=== PATIENT | female | born 1935 | race Caucasian/White ===

== ENCOUNTER 2019-07-26 14:06 | Emergency (ER) | payer MEDICARE, BC ==
--- NOTE | 2019-07-26 15:36 | EDM.PDOCBH ---
ED HPI GENERAL MEDICAL PROBLEM - General Stated Complaint: SOB Time Seen by Provider: 07/26/19 14:10 Source of Information: Reports: [facility] Records - History of Present Illness INITIAL COMMENTS - FREE TEXT/NARRATIVE: Patient presented to the ED because hyperventilation, dyspnea and kind off hysteria after she found out that her children are not visiting her today. She was shaking the door so hard and almost fell to the floor. shelter staff were able to cath her and lay her on the floor before falling. - Related Data Allergies Allergy/AdvReac Type Severity Reaction Status Date / Time Unable to Assess Allergy Unverified 07/26/19 19:18 Home Meds: Home Meds . [Unable to Verify Home Med List] 07/26/19 [History] ED ROS GENERAL - Review of Systems Review Of Systems: See Below Constitutional: Reports: No Symptoms HEENT: Reports: No Symptoms Respiratory: Reports: Shortness of Breath Cardiovascular: Reports: No Symptoms Endocrine: Reports: No Symptoms GI/Abdominal: Reports: No Symptoms Skin: Reports: No Symptoms Psychiatric: Reports: Anxiety, Mood Lability ED EXAM, BEHAVIORAL HEALTH - Physical Exam Exam: See Below Exam Limited By: No Limitations General Appearance: Other (unresponsive and doesn't respond to questions. She will just open her eyes.) Ears: Normal External Exam, Normal [place] Nose: Normal Inspection Throat/Mouth: Normal Inspection, Normal Lips, Normal Teeth, Normal Gums Head: Atraumatic, Normocephalic Neck: Normal Inspection Respiratory/Chest: No Respiratory Distress, Lungs Clear, Normal Breath Sounds, No Accessory Muscle Use, Chest Non-Tender Back Exam: Normal Inspection Extremities: Normal Inspection, Normal Range of Motion, Non-Tender Neurological: Alert, Normal Mood/Affect, CN II-XII Intact, Normal Cognition, Normal Reflexes, No Motor/Sensory Deficits Psychiatric: Restless, Uncooperative, Other (unresponsive) Skin Exam: Warm COURSE, BEHAVIORAL HEALTH COMP - Course Vital Signs: Last Vital Signs Temp 36.2 C 07/26/19 14:06 Pulse 80 07/26/19 16:00 Resp 18 07/26/19 16:00 BP 155/72 H 07/26/19 16:00 Pulse Ox 99 07/26/19 16:00 labs reviewed and are stable Patient is vitally stable throughout her stay in the ED When patient's daughter arrived she started talking and was back to her baseline. Orders, Labs, Meds: Laboratory Tests 07/26/19 07/26/19 07/26/19 Range/Units 14:25 14:25 14:25 WBC 5.4 (4.5-12.0) X10-3/uL RBC 4.17 (3.23-5.20) x10(6)uL Hgb 12.8 (11.5-15.5) g/dL Hct 39.0 (30.0-51.3) % MCV 93.6 (80-96) fL MCH 30.6 (27.7-33.6) pg MCHC 32.7 (32.2-35.4) g/dL RDW 12.9 (11.5-15.5) % Plt Count 389 H (125-369) X10(3)uL MPV 7.4 (7.4-10.4) fL Neut % (Auto) 57.3 (46-82) % Lymph % (Auto) 31.3 (13-37) % [place] % (Auto) 7.9 (4-12) % Eos % (Auto) 3 (1.0-5.0) % Baso % (Auto) 1 (0-2) % Neut # (Auto) 3.0 (1.6-8.3) # Lymph # (Auto) 1.7 (0.6-5.0) # [place] # (Auto) 0.4 (0.0-1.3) # Eos # (Auto) 0.2 (0.0-0.8) # Baso # (Auto) 0.0 (0.0-0.2) # Sodium 143 (135-145) mmol/L Potassium 3.9 (3.5-5.3) mmol/L Chloride 106 (100-110) mmol/L Carbon Dioxide 27 (21-32) mmol/L BUN 14 (7-18) mg/dL Creatinine 0.9 (0.55-1.02) mg/dL Est Cr Clr Drug Dosing TNP Estimated GFR (MDRD) 60 (>60) BUN/Creatinine Ratio 15.6 (9-20) Glucose 95 (80-116) mg/dL Calcium 9.1 (8.6-10.2) mg/dL Troponin I < 0.017 L (<0.017-0.056) ng/mL Departure - Departure Time of Disposition: 15:35 Disposition: Home, Self-Care 01 Condition: Good Clinical Impression: Conversion disorder - Discharge Information Instructions: Conversion Disorder Referrals: Brendon Rosen MD [Primary Care Provider] - Forms: ED Department Discharge Additional Instructions: please read discharge instructions on conversion disorder if he becomes agitated again, give ativan 1 mg IM x1 follow up if symptoms persist
== END 2019-07-26 16:20 | disposition home or self-care (01) ==
LOC: FB.ED 14:06
DX: F44.5 Conversion disorder with seizures or convulsions (principal)
CPT/HCPCS: 36415; 80048; 84484; 85025; 93005; 99283; 99284

== ENCOUNTER 2020-02-28 13:54 | Emergency (ER) | payer MEDICARE, MEDICAID ==
[2020-02-28] MEDS ORDERED: Sodium Chloride 0.9% 10 ML Syringe FLUSH PRN (14:20)
--- NOTE | 2020-02-28 14:33 | EDM.PDOC ---
ED HPI GENERAL MEDICAL PROBLEM - General Chief Complaint: Lower Extremity Injury/Pain Stated Complaint: FELL Time Seen by Provider: 02/28/20 14:28 Source of Information: Reports: Patient History Limitations: Reports: No Limitations - History of Present Illness INITIAL COMMENTS - FREE TEXT/NARRATIVE: Patient resides at [facility]. She lost her balance and fell today while out side walking with spiritual services. There was no loss of consciousness or seizure activity. Patient believes she did strike her head, but denies headache or neck pain. She complains of right hip pain. Onset: Today Duration: Hour(s): (1) Location: Reports: Lower Extremity, Right Severity: Moderate right side hip Pain Score (Numeric/FACES): 6 - Related Data Allergies Allergy/AdvReac Type Severity Reaction Status Date / Time Unable to Assess Allergy Unverified 07/26/19 19:18 Home Meds: Home Meds . [Unable to Verify Home Med List] 07/26/19 [History] Past Medical History Cardiovascular History: Reports: Afib, CAD, High Cholesterol, Hypertension Neurological History: Reports: Alzheimers Disease, Seizure, TIA Endocrine/Metabolic History: Reports: Hypothyroidism Social & Family History - Family History Family Medical History: Noncontributory - Caffeine Use Caffeine Use: Reports: Coffee Review of Systems - Review of Systems Review Of Systems: Comprehensive ROS is negative, except as noted in HPI. ED EXAM, GENERAL - Physical Exam Exam: See Below Exam Limited By: No Limitations General Appearance: Alert, WD/WN, No Apparent Distress Eye Exam: Bilateral Eye: EOMI, PERRL Throat/Mouth: No Airway Compromise Head: Atraumatic, Normocephalic Neck: Normal Inspection, Non-Tender, Full Range of Motion Respiratory/Chest: No Respiratory Distress, Lungs Clear, Normal Breath Sounds Cardiovascular: Regular Rate, Rhythm, No Murmur Peripheral Pulses: 2+: Femoral (L), Femoral (R), Dorsalis Pedis (L), Dorsalis Pedis (R) GI/Abdominal: Normal Bowel Sounds, Soft, Non-Tender, No Distention Back Exam: Full Range of Motion Extremities: Other (Bilateral hip and mid thigh tenderness. No deformity, shortening or rotation.) Neurological: Alert Skin Exam: Warm, Dry, Intact Course - Vital Signs Last Recorded V/S: Last Vital Signs Temp 36.8 C 02/28/20 13:54 Pulse 66 02/28/20 13:54 Resp 18 02/28/20 13:54 BP 159/72 H 02/28/20 13:54 Pulse Ox 97 02/28/20 13:54 - Orders/Labs/Meds Orders: Active Orders 24 hr Category Date Time Status EKG Documentation Completion [RC] ASDIRECTED Care 02/28/20 14:34 Active Cervical Spine wo Cont [CT] Stat Exams 02/28/20 14:21 Taken Femur Min 2V Bi [CR] Stat Exams 02/28/20 14:23 Taken Head wo Cont [CT] Stat Exams 02/28/20 14:21 Taken Pelvis wo Cont [CT] Stat Exams 02/28/20 14:22 Taken Sodium Chloride 0.9% [Saline Flush] Med 02/28/20 14:20 Active 10 ml FLUSH ASDIRECTED PRN Saline Lock Insert [OM.PC] Routine Oth 02/28/20 14:20 Ordered EKG 12 Lead [EK] Stat Ther 02/28/20 14:34 Ordered Medication Orders Sodium Chloride (Saline Flush) 10 ml FLUSH ASDIRECTED PRN PRN Reason: Keep Vein Open Labs: Laboratory Tests 02/28/20 02/28/20 Range/Units 14:38 14:38 WBC 4.8 (4.5-12.0) X10-3/uL RBC 3.67 (3.23-5.20) x10(6)uL Hgb 11.4 L (11.5-15.5) g/dL Hct 34.0 (30.0-51.3) % MCV 92.6 (80-96) fL MCH 31.1 (27.7-33.6) pg MCHC 33.6 (32.2-35.4) g/dL RDW 11.9 (11.5-15.5) % Plt Count 324 (125-369) X10(3)uL MPV 6.7 L (7.4-10.4) fL Neut % (Auto) 60.2 (46-82) % Lymph % (Auto) 27.4 (13-37) % [place] % (Auto) 7.7 (4-12) % Eos % (Auto) 4 (1.0-5.0) % Baso % (Auto) 1 (0-2) % Neut # (Auto) 2.8 (1.6-8.3) # Lymph # (Auto) 1.3 (0.6-5.0) # [place] # (Auto) 0.4 (0.0-1.3) # Eos # (Auto) 0.2 (0.0-0.8) # Baso # (Auto) 0.0 (0.0-0.2) # Sodium 141 (135-145) mmol/L Potassium 4.1 (3.5-5.3) mmol/L Chloride 106 (100-110) mmol/L Carbon Dioxide 28 (21-32) mmol/L BUN 16 (7-18) mg/dL Creatinine 0.9 (0.55-1.02) mg/dL Est Cr Clr Drug Dosing 37.80 mL/min Estimated GFR (MDRD) 60 (>60) BUN/Creatinine Ratio 17.8 (9-20) Glucose 95 (80-116) mg/dL Calcium 8.9 (8.6-10.2) mg/dL Meds: Medications Generic Name Dose Route Start Last Admin Trade Name Freq PRN Reason Stop Dose Admin Sodium Chloride 10 ml 02/28/20 14:20 Saline Flush FLUSH ASDIRECTED PRN Keep Vein Open - Radiology Interpretation Free Text/Narrative:: Head CT: No acute process. (per Dr. Grovre) CT C-spine w/o contrast: No fracture or subluxation. (per Dr. Grover) CT Pelvis w/o contrast: No fracture. (per Dr. Grover) Bilateral femur xrays: No fractures. (per Dr. Grover) Departure - Departure Time of Disposition: 15:34 Disposition: DC/Tfer to SNF 03 Condition: Good Clinical Impression: Minor head injury Qualifiers: Encounter type: initial encounter Qualified Code(s): S09.90XA - Unspecified injury of head, initial encounter Contusion of hip, right Qualifiers: Encounter type: initial encounter Qualified Code(s): S70.01XA - Contusion of right hip, initial encounter - Discharge Information *PRESCRIPTION DRUG MONITORING PROGRAM REVIEWED*: No *COPY OF PRESCRIPTION DRUG MONITORING REPORT IN PATIENT YVES: Not Applicable Instructions: Contusion, [id number], Head Injury, Adult, [id number] Referrals: Brendon Rosen MD [Primary Care Provider] - Forms: ED Department Discharge Additional Instructions: Give Tylenol as needed to control pain. Return to the ER as needed. Sepsis Event Note (ED) - Evaluation Sepsis Screening Result: No Definite Risk - Focused Exam Vital Signs: Vital Signs Temp Pulse Resp BP Pulse Ox 02/28/20 13:54 36.8 C 66 18 159/72 H 97 - My Orders Last 24 Hours: My Active Orders 02/28/20 14:20 Sodium Chloride 0.9% [Saline Flush] 10 ml FLUSH ASDIRECTED PRN Saline Lock Insert [OM.PC] Routine 02/28/20 14:21 Cervical Spine wo Cont [CT] Stat Head wo Cont [CT] Stat 02/28/20 14:22 Pelvis wo Cont [CT] Stat 02/28/20 14:23 Femur Min 2V Bi [CR] Stat 02/28/20 14:34 EKG Documentation Completion [RC] ASDIRECTED EKG 12 Lead [EK] Stat - Assessment/Plan Last 24 Hours: My Active Orders 02/28/20 14:20 Sodium Chloride 0.9% [Saline Flush] 10 ml FLUSH ASDIRECTED PRN Saline Lock Insert [OM.PC] Routine 02/28/20 14:21 Cervical Spine wo Cont [CT] Stat Head wo Cont [CT] Stat 02/28/20 14:22 Pelvis wo Cont [CT] Stat 02/28/20 14:23 Femur Min 2V Bi [CR] Stat 02/28/20 14:34 EKG Documentation Completion [RC] ASDIRECTED EKG 12 Lead [EK] Stat
--- NOTE | 2020-02-28 17:11 | CT ---
INDICATION: Fall hitting head. CT HEAD WITHOUT CONTRAST: Spiral 3.75 mm axial sections were obtained through the brain without contrast 02/28/20 - no comparison. Calcification is noted in the vertebral arteries and the internal carotid arteries. Paranasal sinuses and mastoid air cells were well aerated. No cranial fracture site was identified. No shift of midline structures was seen. Ventricles and sulci are prominent compatible with generalized atrophy. Areas of decreased density are noted in the white matter compatible with microvascular disease of mild to moderate degree. No evidence of a bleeding site or hematoma was identified - no acute intracranial abnormality was suggested. Orbits appear to be intact. IMPRESSION: 1. No definite acute intracranial abnormality. 2. Cerebrovascular disease with arterial calcifications, white matter changes compatible with mild to moderate microvascular disease and atrophy both cortical and central, more prominent centrally. Total exam DLP was 1296.53 mGy-cm. Report was called to Dr. Obregon at 1508 hours. [facility]
--- NOTE | 2020-02-28 17:17 | CT ---
INDICATION: Fall. CT CERVICAL SPINE: Spiral 2.5 mm axial sections were obtained through the cervical spine with sagittal and coronal reconstructions 02/28/20 - no comparisons. Total exam DLP was 361.58 mGy-cm. Vertebral body and disc heights were fairly well maintained. Moderate degenerative hypertrophic changes with narrowing, sclerosis, and hypertrophic changes noted at the odontoatlantian joint. The atlas and axis were intact as the odontoid is intact. An acute fracture or dislocation was not suggested. Bone density appeared to be fairly normal. Prevertebral spaces appeared to be normal. Neural foramina were widely patent. IMPRESSION: 1. No acute fracture or dislocation. 2. Degenerative changes odontoatlantian joint. Report was called to Dr. Obregon at 1508 hours. [facility]
--- NOTE | 2020-02-28 17:22 | CT ---
INDICATION: Trauma - fall, pain bilateral hips, right more than left. CT PELVIS WITHOUT CONTRAST: Spiral 1.25 mm axial sections were obtained through the pelvis with sagittal and coronal reconstructions 02/28/20 - no comparisons. Total exam DLP was 636.74 mGy-cm. Calcifications are noted in the abdominal aorta, iliac and minimally in the femoral arteries. The uterus is absent. Urinary bladder was unremarkable. There are some phleboliths in the pelvis. Sigmoid diverticulosis is noted without definite evidence of diverticulitis. No evidence of hematoma was seen. Mild degenerative changes are noted at the sacroiliac joint on the right with minimal degenerative changes on the left at the sacroiliac joint. Minimal degenerative changes are noted at the right hip joint with hypertrophic lipping of very minimal degree. A fracture or dislocation was not identified. Incidentally noted is degenerative disc disease at L5-S1. IMPRESSION: No acute fracture or dislocation. Report was called to Dr. Obregon at 1508 hours. [facility]
--- NOTE | 2020-02-28 17:25 | CR ---
INDICATION: Fall. BILATERAL FEMURS: Eight images of the femurs bilaterally were obtained in frontal and lateral projections and revealed no evidence of an acute fracture, dislocation or other acute bone or joint abnormality. Minor degenerative change is suggested at the right hip joint and right knee joint. Minimal spur is noted off the left patella craniolaterally. Report was called to Dr. Obregon at 1508 hours. [facility]
== END 2020-02-28 16:10 ==
LOC: FB.ED 13:54
DX: S70.01XA Contusion of right hip, initial encounter (principal); S09.90XA Unspecified injury of head, initial encounter; W19.XXXA Unspecified fall, initial encounter; I48.91 Unspecified atrial fibrillation; I25.10 Atherosclerotic heart disease of native coronary artery without angina pectoris; E78.00 Pure hypercholesterolemia, unspecified; I10 Essential (primary) hypertension; G30.9 Alzheimer's disease, unspecified; F02.80 Dementia in other diseases classified elsewhere, unspecified severity, without behavioral disturbance, psychotic disturbance, mood disturbance, and anxiety; E03.9 Hypothyroidism, unspecified; Z86.73 Personal history of transient ischemic attack (TIA), and cerebral infarction without residual deficits; G40.909 Epilepsy, unspecified, not intractable, without status epilepticus
CPT/HCPCS: 36415; 70450; 72125; 72192; 73552-50; 80048; 85025; 93010; 99283; 99284-25

== ENCOUNTER 2020-04-12 18:57 | Emergency (ER) | payer MEDICARE, MEDICAID ==
--- NOTE | 2020-04-12 19:34 | EDM.PDOC ---
ED HPI GENERAL MEDICAL PROBLEM - General Chief Complaint: Neuro Symptoms/Deficits Stated Complaint: FALL Time Seen by Provider: 04/12/20 19:00 Source of Information: Reports: Patient History Limitations: Reports: No Limitations - History of Present Illness INITIAL COMMENTS - FREE TEXT/NARRATIVE: Patient presented to the ED from the [facility] because of a fall. It was an unwitnessed fall, patient was found on the floor with facial bleeding. There was no LOC. She c/o low back pain, left hip and right knee pain. back, tailbone, L hip, R knee Pain Score (Numeric/FACES): 4 - Related Data Allergies Allergy/AdvReac Type Severity Reaction Status Date / Time erythromycin base Allergy Unknown Other Verified 04/12/20 19:23 [From Erythrocin] Home Meds: Home Meds . [Unable to Verify Home Med List] 07/26/19 [History] Past Medical History Cardiovascular History: Reports: Afib, CAD, High Cholesterol, Hypertension Neurological History: Reports: Alzheimers Disease, Seizure, TIA Endocrine/Metabolic History: Reports: Hypothyroidism Social & Family History - Family History Family Medical History: Noncontributory - Caffeine Use Caffeine Use: Reports: Coffee ED ROS GENERAL - Review of Systems Review Of Systems: See Below Constitutional: Reports: No Symptoms HEENT: Reports: No Symptoms Respiratory: Reports: No Symptoms Cardiovascular: Reports: No Symptoms Endocrine: Reports: No Symptoms GI/Abdominal: Reports: No Symptoms : Reports: No Symptoms Musculoskeletal: Reports: No Symptoms Skin: Reports: No Symptoms Neurological: Reports: No Symptoms Psychiatric: Reports: No Symptoms Hematologic/Lymphatic: Reports: No Symptoms Immunologic: Reports: No Symptoms ED EXAM, GENERAL - Physical Exam Exam: See Below Exam Limited By: No Limitations Eye Exam: Bilateral Eye: PERRL Ears: Normal External Exam Nose: Normal Inspection, Normal Mucosa Throat/Mouth: Normal Inspection, Normal Lips, Normal Teeth Head: Atraumatic, Normocephalic Neck: Normal Inspection, Supple, Non-Tender, Full Range of Motion Respiratory/Chest: No Respiratory Distress, Lungs Clear, Normal Breath Sounds Cardiovascular: Normal Peripheral Pulses, Regular Rate, Rhythm, No Edema, No Gallop GI/Abdominal: Normal Bowel Sounds Back Exam: Normal Inspection, Full Range of Motion Extremities: Normal Inspection, Normal Range of Motion, Other (tenderness over the left hip,rt knee) Neurological: Alert, Other (demented) Psychiatric: Normal Affect Course - Vital Signs Last Recorded V/S: Last Vital Signs Temp 36.7 C 04/12/20 19:00 Pulse 56 L 04/12/20 19:00 Resp 16 04/12/20 19:00 BP 146/50 H 04/12/20 19:00 Pulse Ox 95 04/12/20 19:00 Labs and radiology result was discussed with patient and her daughter Juana - Orders/Labs/Meds Orders: Active Orders 24 hr Category Date Time Status EKG Documentation Completion [RC] ASDIRECTED Care 04/12/20 19:10 Active Cervical Spine wo Cont [CT] Stat Exams 04/12/20 19:11 Taken Head wo Cont [CT] Stat Exams 04/12/20 19:11 Taken Knee 1V or 2V Rt [CR] Stat Exams 04/12/20 19:19 Taken Lumbar Spine wo Cont [CT] Stat Exams 04/12/20 19:19 Taken Max Facial Sinus wo Cont [CT] Stat Exams 04/12/20 19:13 Taken Pelvis wo Cont [CT] Stat Exams 04/12/20 19:19 Taken EKG 12 Lead [EK] Routine Ther 04/12/20 19:10 Ordered Labs: Laboratory Tests 04/12/20 04/12/20 04/12/20 Range/Units 19:22 19:22 19:22 WBC 4.6 (4.5-12.0) X10-3/uL RBC 3.72 (3.23-5.20) x10(6)uL Hgb 11.5 (11.5-15.5) g/dL Hct 34.6 (30.0-51.3) % MCV 92.9 (80-96) fL MCH 30.9 (27.7-33.6) pg MCHC 33.2 (32.2-35.4) g/dL RDW 12.1 (11.5-15.5) % Plt Count 299 (125-369) X10(3)uL MPV 6.8 L (7.4-10.4) fL Neut % (Auto) 56.6 (46-82) % Lymph % (Auto) 32.5 (13-37) % [place] % (Auto) 7.7 (4-12) % Eos % (Auto) 3 (1.0-5.0) % Baso % (Auto) 1 (0-2) % Neut # (Auto) 2.6 (1.6-8.3) # Lymph # (Auto) 1.5 (0.6-5.0) # [place] # (Auto) 0.4 (0.0-1.3) # Eos # (Auto) 0.1 (0.0-0.8) # Baso # (Auto) 0.0 (0.0-0.2) # PT 10.4 (9.0-11.1) sec INR 0.96 L (1.00-1.24) APTT 22.4 L (24.4-33.2) SECONDS Sodium 140 (135-145) mmol/L Potassium 3.9 (3.5-5.3) mmol/L Chloride 104 (100-110) mmol/L Carbon Dioxide 27 (21-32) mmol/L BUN 17 (7-18) mg/dL Creatinine 1.0 (0.55-1.02) mg/dL Est Cr Clr Drug Dosing TNP Estimated GFR (MDRD) 53 L (>60) BUN/Creatinine Ratio 17.0 (9-20) Glucose 93 (80-116) mg/dL Calcium 8.6 (8.6-10.2) mg/dL Total Bilirubin 0.4 (0.1-1.3) mg/dL AST 26 H D (5-25) IU/L ALT 25 (12-36) U/L Alkaline Phosphatase 93 (56-112) IU/L Troponin I (4.0-60.3) pg/mL Total Protein 6.8 (6.0-8.0) g/dL Albumin 3.8 (3.2-4.6) g/dL Globulin 3.0 g/dL Albumin/Globulin Ratio 1.3 08//20 Range/Units 19:22 WBC (4.5-12.0) X10-3/uL RBC (3.23-5.20) x10(6)uL Hgb (11.5-15.5) g/dL Hct (30.0-51.3) % MCV (80-96) fL MCH (27.7-33.6) pg MCHC (32.2-35.4) g/dL RDW (11.5-15.5) % Plt Count (125-369) X10(3)uL MPV (7.4-10.4) fL Neut % (Auto) (46-82) % Lymph % (Auto) (13-37) % [place] % (Auto) (4-12) % Eos % (Auto) (1.0-5.0) % Baso % (Auto) (0-2) % Neut # (Auto) (1.6-8.3) # Lymph # (Auto) (0.6-5.0) # [place] # (Auto) (0.0-1.3) # Eos # (Auto) (0.0-0.8) # Baso # (Auto) (0.0-0.2) # PT (9.0-11.1) sec INR (1.00-1.24) APTT (24.4-33.2) SECONDS Sodium (135-145) mmol/L Potassium (3.5-5.3) mmol/L Chloride (100-110) mmol/L Carbon Dioxide (21-32) mmol/L BUN (7-18) mg/dL Creatinine (0.55-1.02) mg/dL Est Cr Clr Drug Dosing Estimated GFR (MDRD) (>60) BUN/Creatinine Ratio (9-20) Glucose (80-116) mg/dL Calcium (8.6-10.2) mg/dL Total Bilirubin (0.1-1.3) mg/dL AST (5-25) IU/L ALT (12-36) U/L Alkaline Phosphatase (56-112) IU/L Troponin I 11.4 (4.0-60.3) pg/mL Total Protein (6.0-8.0) g/dL Albumin (3.2-4.6) g/dL Globulin g/dL Albumin/Globulin Ratio Departure - Departure Time of Disposition: 21:00 Disposition: DC/Tfer to SNF 03 Condition: Good Clinical Impression: Closed head injury, Muscle strain, Contusion - Discharge Information Referrals: Brendon Rosen MD [Primary Care Provider] - Forms: ED Department Discharge Additional Instructions: Please read discharge instructions on closed head injury, Muscle strain, Contusion Take tylenol 1000 mg every 8 ours as needed for pain Do not take your aspirin for 3 days Sepsis Event Note (ED) - Evaluation Sepsis Screening Result: No Definite Risk - Focused Exam Vital Signs: Vital Signs Temp Pulse Resp BP Pulse Ox 04/12/20 19:00 36.7 C 56 L 16 146/50 H 95 - My Orders Last 24 Hours: My Active Orders 04/12/20 19:10 EKG Documentation Completion [RC] ASDIRECTED EKG 12 Lead [EK] Routine 04/12/20 19:11 Cervical Spine wo Cont [CT] Stat Head wo Cont [CT] Stat 04/12/20 19:13 Max Facial Sinus wo Cont [CT] Stat 04/12/20 19:19 Knee 1V or 2V Rt [CR] Stat Lumbar Spine wo Cont [CT] Stat Pelvis wo Cont [CT] Stat - Assessment/Plan Last 24 Hours: My Active Orders 04/12/20 19:10 EKG Documentation Completion [RC] ASDIRECTED EKG 12 Lead [EK] Routine 04/12/20 19:11 Cervical Spine wo Cont [CT] Stat Head wo Cont [CT] Stat 04/12/20 19:13 Max Facial Sinus wo Cont [CT] Stat 04/12/20 19:19 Knee 1V or 2V Rt [CR] Stat Lumbar Spine wo Cont [CT] Stat Pelvis wo Cont [CT] Stat
== END 2020-04-12 21:40 ==
LOC: FB.ED 18:57
DX: S09.90XA Unspecified injury of head, initial encounter (principal); S76.012A Strain of muscle, fascia and tendon of left hip, initial encounter; S86.911A Strain of unspecified muscle(s) and tendon(s) at lower leg level, right leg, initial encounter; S39.012A Strain of muscle, fascia and tendon of lower back, initial encounter; I25.10 Atherosclerotic heart disease of native coronary artery without angina pectoris; I10 Essential (primary) hypertension; G30.9 Alzheimer's disease, unspecified; F02.80 Dementia in other diseases classified elsewhere, unspecified severity, without behavioral disturbance, psychotic disturbance, mood disturbance, and anxiety; I48.91 Unspecified atrial fibrillation; Z86.73 Personal history of transient ischemic attack (TIA), and cerebral infarction without residual deficits; Z88.1 Allergy status to other antibiotic agents; W19.XXXA Unspecified fall, initial encounter
CPT/HCPCS: 36415; 70450; 70486; 72125; 72131; 72192; 73560-RT; 80053; 84484; 85025; 85610; 85730; 93005; 99284-25

== ENCOUNTER 2020-05-05 15:08 | Emergency (ER) | payer MEDICARE, MEDICAID ==
--- NOTE | 2020-05-05 16:47 | EDM.PDOC ---
ED HPI GENERAL MEDICAL PROBLEM - General Stated Complaint: fall Time Seen by Provider: 05/05/20 15:15 Source of Information: Reports: Patient History Limitations: Reports: No Limitations - History of Present Illness INITIAL COMMENTS - FREE TEXT/NARRATIVE: Patient presented to the ED because ofa fall. Patient tripped and fell and landed on he butock and lower back. She sustained a head laceration over the right frontal area,c/o rt hip pain and low back pain. There was no LOC after the fall. - Related Data Allergies Allergy/AdvReac Type Severity Reaction Status Date / Time erythromycin base Allergy Unknown Other Verified 04/12/20 19:23 [From Erythrocin] codeine Allergy Other Verified 04/12/20 22:31 morphine Allergy Other Verified 04/12/20 22:31 Home Meds: Home Meds . [Unable to Verify Home Med List] 07/26/19 [History] Past Medical History Other HEENT History: dry eye syndrome, age related cataract, preglaucoma Cardiovascular History: Reports: Afib, CAD, High Cholesterol, Hypertension Other Cardiovascular History: Angina Pectoris, unspecified bradycardia Other Musculoskeletal History: has Alzheimer's Neurological History: Reports: Alzheimers Disease, Seizure, TIA Other Neuro History: Vascular dementia wihtout behavioral disturbance, Psychotic disorder with delusions due to known physiological condition. 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 Endocrine/Metabolic History: Reports: Hypothyroidism Oncologic (Cancer) History: Reports: Other (See Below) Other Oncologic History: malignant neoplasm of the skin. Dermatologic History: Reports: Other (See Below) Other Dermatologic History: malignant neoplasm of the skin. - Past Surgical History Cardiovascular Surgical History: Reports: None Social & Family History - Family History Family Medical History: Noncontributory - Caffeine Use Caffeine Use: Reports: Coffee Caffeine Use Comment: unable to get this information as of this time. ED ROS GENERAL - Review of Systems Review Of Systems: See Below Constitutional: Reports: No Symptoms HEENT: Reports: No Symptoms Respiratory: Reports: No Symptoms Cardiovascular: Reports: No Symptoms Endocrine: Reports: No Symptoms GI/Abdominal: Reports: No Symptoms : Reports: No Symptoms Musculoskeletal: Reports: Arm Pain, Joint Pain Skin: Reports: No Symptoms Neurological: Reports: No Symptoms Psychiatric: Reports: No Symptoms Hematologic/Lymphatic: Reports: No Symptoms ED EXAM, GENERAL - Physical Exam Exam: See Below Exam Limited By: No Limitations General Appearance: Other (demented) Ears: Normal External Exam, Normal Canal Nose: Normal Inspection, Normal Mucosa, No Blood Throat/Mouth: Normal Inspection, Normal Lips, Normal Teeth, Normal Gums Head: Atraumatic, Normocephalic Neck: Normal Inspection, Supple, Non-Tender, Full Range of Motion Respiratory/Chest: No Respiratory Distress, Lungs Clear, Normal Breath Sounds Cardiovascular: Normal Peripheral Pulses, Regular Rate, Rhythm, No Edema, No Gallop, No JVD, No Murmur GI/Abdominal: Normal Bowel Sounds, Soft, Non-Tender, No Organomegaly Back Exam: Normal Inspection, Full Range of Motion Extremities: Normal Inspection, Normal Range of Motion, Other (tenderness over the rt hip,lumbar spine) Neurological: Alert, Oriented, CN II-XII Intact, Normal Cognition Psychiatric: Normal Affect Skin Exam: Warm, Dry, Intact, Normal Color, No Rash, Other (3 cm lac rt frontal area) ED GENERAL MEDICAL PROCEDURES - Laceration/Wound Repair Right Forehead Appearance: Subcutaneous Distal NVT: Neuro & Vascular Intact Skin Prep: Chlorhexidine (Hibiciens) Closed with: Dermabond, Steri-Strips Course - Vital Signs Text/Narrative:: headt CT-neg thoracic, lumbar,rt hip xray-neg Last Recorded V/S: Last Vital Signs Temp 36.8 C 05/05/20 15:08 Pulse 67 05/05/20 15:08 Resp 16 05/05/20 15:08 BP 184/66 H 05/05/20 15:08 Pulse Ox 98 05/05/20 15:08 Departure - Departure Time of Disposition: 16:50 Disposition: DC/Tfer to SNF 03 Condition: Good Clinical Impression: Head injury, Laceration, Contusion, Musculoskeletal pain - Discharge Information Instructions: Head Injury, Adult, Laceration Care, Adult, Contusion, Tozi-by-Sugl Referrals: Brendon Rosen MD [Primary Care Provider] - Forms: ED Department Discharge Additional Instructions: Please read discharge instructions on head injury, contusion, muscle pain Take tylenol 1000 mg every 8 hours as needed for pain Follow up as needed Sepsis Event Note (ED) - Focused Exam Vital Signs: Vital Signs Temp Pulse Resp BP Pulse Ox 05/05/20 15:08 36.8 C 67 16 184/66 H 98
--- NOTE | 2020-05-05 19:00 | CT ---
INDICATION: Fall. Hip pain. Hit right side of head with laceration above eye. CT HEAD WITHOUT CONTRAST: Spiral 3.75 mm axial sections were obtained through the brain without contrast with sagittal, axial and coronal reconstructions 05/05/20 and compared with 04/12/20. Total exam DLP was 1399.62 mGy-cm. Degenerative hypertrophic changes and loss of joint space are noted at the odontoatlantian joint. The atlas and axis appear grossly intact. The mastoid air cells appear well aerated. The paranasal air cells appear well aerated. No cranial fracture site was identified. Soft tissue injury is noted overlying the right lateral orbit area and superior to the right orbit with evidence of laceration. Calcifications are noted in the vertebral arteries, right greater than left and in the internal carotid arteries. The orbits appear to be grossly intact. White matter changes compatible with microvascular disease are again noted with little interval change identified and no finding to strongly suggest an acute thrombotic CVA, bleeding site or hematoma. No shift of midline structures was identified. Ventricles are moderately prominent, compatible with patient's age and a degree of central atrophy. IMPRESSION: 1. No acute intracranial abnormality. 2. Cerebrovascular disease with white matter changes compatible with microvascular disease, although other cause of leukoencephalopathy cannot be excluded. 3. Soft tissue laceration right orbital area. Report was called to Dr. Storey at 1618 hours. [facility]
--- NOTE | 2020-05-05 19:03 | CR ---
INDICATION: Fall. Back pain. THORACIC SPINE: Three views of the thoracic spine were obtained 05/05/20 - no comparison. A moderate dextroconvex scoliosis is noted at the mid thoracic spine. Mild hypertrophic degenerative changes are noted at the mid thoracic spine levels extending into the lower levels and also into the upper levels to some degree. Narrowing of disk space is noted at a mid thoracic level with disk disease likely at that level. Overall bone density is normal in appearance. Vertebral body heights were maintained without definite fracture or dislocation. The heart is enlarged with LVE. The aorta is calcified and tortuous. Recorder is noted near the left ventricle. IMPRESSION: No definite acute fracture or dislocation with findings, as noted above. Report was called to Dr. Storey at 1618 hours. [facility]
--- NOTE | 2020-05-05 19:06 | CR ---
INDICATION: Fall. Low back pain. LUMBOSACRAL SPINE: Three views of the lumbosacral spine were obtained 05/05/20 - no comparisons. Decreased disk space is minimal with a very minimal anterolisthesis at L4-5. There are some minimal hypertrophic changes suggested at L4-5 and L5-S1 apophyseal joints. Sacroiliac joints appear to be intact. Vertebral body heights are maintained without evidence of a definite acute fracture or dislocation. Pedicles appear to be intact. Incidental noted calcifications in the abdominal aorta. IMPRESSION: 1. No acute fracture or dislocation. 2. Minimal degenerative changes and disk disease L4-5 and degenerative changes posterior elements L5-S1. 3. ASD. Report was called to Dr. Storey at 1618 hours. [facility]
--- NOTE | 2020-05-05 19:10 | CR ---
INDICATION: Fall. Hip pain. RIGHT HIP: Frontal view of the pelvis and frontal and lateral views of the right hip were obtained 05/05/20 - no comparison. Mild degenerative hypertrophic changes are noted at the right hip joint with the hip joint spaces well maintained except for question of some very slight loss of craniolateral joint space at the right hip. Sacroiliac joints appear to be fairly normal with some minimal degenerative changes. An acute fracture or dislocation was not identified. IMPRESSION: No acute fracture or dislocation. Report was called to Dr. Storey at 1618 hours. [facility]
== END 2020-05-05 16:30 ==
LOC: FB.ED 15:08
DX: S01.81XA Laceration without foreign body of other part of head, initial encounter (principal); S70.01XA Contusion of right hip, initial encounter; S30.0XXA Contusion of lower back and pelvis, initial encounter; I10 Essential (primary) hypertension; I25.10 Atherosclerotic heart disease of native coronary artery without angina pectoris; I48.91 Unspecified atrial fibrillation; Z88.1 Allergy status to other antibiotic agents; Z88.5 Allergy status to narcotic agent; W01.0XXA Fall on same level from slipping, tripping and stumbling without subsequent striking against object, initial encounter
CPT/HCPCS: 12013; 70450; 72072; 72100; 73502-RT; 99283; 99284-25

== ENCOUNTER 2020-05-22 11:13 | Emergency (ER) | payer MEDICARE, MEDICAID ==
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
--- NOTE | 2020-05-22 13:18 | CT ---
INDICATION: Fell, hit head on floor. Contusion at occiput. CT HEAD WITHOUT CONTRAST: Spiral 3.75 mm axial sections were obtained through the brain without contrast with sagittal, coronal and axial reconstructions 05/22/20 and compared with 05/05/20. Total exam DLP 1296.53 mGy-cm. No cranial fracture site is identified. The mastoid air cells and the paranasal sinuses well aerated. There is some deformity at the nasal bone on the right, which may be on the basis of previous fracture and was present previously. There is a scalp hematoma posteriorly centrally and extending slightly more to the right at the area of the occiput. Calcifications are noted in the vertebral and internal carotid arteries. The orbits appear to be intact. No significant shift of midline structures was identified. The ventricles are prominent compatible with central atrophy as previously with some cortical atrophy suggested by mildly prominent cortical sulci. White matter changes are again noted compatible with moderate microvascular disease. No bleeding site or hematoma was identified. IMPRESSION: 1. No acute intracranial abnormality. 2. Cerebrovascular disease with arterial calcifications noted. 3. White matter changes compatible with moderate microvascular disease, although other cause of leukoencephalopathy cannot be excluded. 4. Central and, to a lesser extent, cortical atrophy. 5. Scalp hematoma occipital area centrally and to the right. Report was called to Dr. Mcgowan at 12:52 hours. [facility]
--- NOTE | 2020-05-22 13:21 | CR ---
INDICATION: Fell from standing, hit head, nonspecific rib pain. BILATERAL RIBS WITH CHEST: AP upright view of the chest with 3 views of the right and left ribs were obtained with a total of 6 images. The heart is enlarged. The aorta is tortuous. An active infiltrate, effusion, contusion or pneumothorax was not identified. A displaced fracture site was not identified. IMPRESSION: 1. No acute process - no displaced rib fractures noted. 2. ASHD with cardiomegaly. Report was called to Dr. Mcgowan at 12:[address] [facility]
== END 2020-05-22 16:25 | disposition home or self-care (01) ==
LOC: FB.ED 11:13 → UNDOADMOB 13:05 → FB.MS 13:05 → FB.ED 16:25
DX: S00.93XA Contusion of unspecified part of head, initial encounter (principal); R60.0 Localized edema; G30.9 Alzheimer's disease, unspecified; F02.80 Dementia in other diseases classified elsewhere, unspecified severity, without behavioral disturbance, psychotic disturbance, mood disturbance, and anxiety; I10 Essential (primary) hypertension; E78.00 Pure hypercholesterolemia, unspecified; I25.10 Atherosclerotic heart disease of native coronary artery without angina pectoris; E03.9 Hypothyroidism, unspecified; Z79.82 Long term (current) use of aspirin; Z88.1 Allergy status to other antibiotic agents; Z88.5 Allergy status to narcotic agent; Z79.899 Other long term (current) drug therapy; W18.30XA Fall on same level, unspecified, initial encounter
CPT/HCPCS: 36415; 70450; 71111; 81001; 85025; 99284-25; 99285

== ENCOUNTER 2020-07-23 07:21 | Emergency (ER) | payer MEDICARE, MEDICAID ==
--- NOTE | 2020-07-23 08:18 | EDM.PDOC ---
ED HPI GENERAL MEDICAL PROBLEM - General Chief Complaint: Lower Extremity Injury/Pain Stated Complaint: SWOLLEN LEFT LEG Time Seen by Provider: 07/23/20 08:15 Source of Information: Reports: Family (Daughter), Longterm Records History Limitations: Reports: Other (Patient with dementia) - History of Present Illness INITIAL COMMENTS - FREE TEXT/NARRATIVE: 85-year-old female who presents to the emergency department from [facility] with complaints of swelling of the entire left lower extremity. She also complained of some pain behind her left knee. This was noticed by the staff and the patient began complaining of the leg swelling yesterday. The patient was complaining more of the leg swelling today and that prompted them to send her to the emergency department for evaluation. She is here with her daughter but not really no any of the history. The patient has dementia and cannot really provide me with much information and most of your medication that I have comes from the assisted staff's records. No reports of fever. The patient denies any chest pain or shortness of breath. No reports of trauma. No reports of redness on the leg. No abdominal pain. The patient has apparently been eating and drinking normally. The patient does report some pain to me but is unable to quantitate it or qualitate it. There are no other associated signs or symptoms. There are no other modifying factors. Onset: Other (Yesterday (?)) Duration: Getting Worse Location: Reports: Lower Extremity, Left Quality: Reports: Other (Patient unable) Severity: Mild (to moderate by my observation.) Improves with: Reports: Rest Worsens with: Reports: Other (Walking), Movement Context: Reports: Other (As above) Associated Symptoms: Reports: No Other Symptoms Treatments [employer]: Reports: Other (see below) (Nothing.) - Related Data Allergies Allergy/AdvReac Type Severity Reaction Status Date / Time erythromycin base Allergy Unknown Other Verified 07/23/20 07:52 [From Erythrocin] codeine Allergy Other Verified 07/23/20 07:52 morphine Allergy Other Verified 07/23/20 07:52 Home Meds: Home Meds Acetaminophen [Tylenol Extra Strength] 1,000 mg PO TID 05/22/20 [History] Amiodarone [Cordarone] 100 mg PO DAILY 05/22/20 [History] Aspirin [Halfprin] 81 mg PO DAILY 05/22/20 [History] Cholecalciferol (Vitamin D3) [Vitamin D3] 25 mcg PO DAILY 05/22/20 [History] Citalopram Hydrobromide [Celexa] 10 mg PO DAILY 05/22/20 [History] Gabapentin [Neurontin] 200 mg PO TID 05/22/20 [History] LORazepam [Ativan] 0.25 mg PO BID 05/22/20 [History] Levothyroxine [Synthroid] 88 mcg PO DAILY 05/22/20 [History] Losartan [Cozaar] 100 mg PO DAILY 05/22/20 [History] Mirtazapine [Remeron] 15 mg PO BEDTIME 05/22/20 [History] Nitroglycerin [Nitrostat] 0.4 mg PO TID PRN 05/22/20 [History] Omeprazole 20 mg PO DAILY 05/22/20 [History] levETIRAcetam [Levetiracetam] 250 mg PO BID 05/22/20 [History] polyethylene glycoL 3350 [MiraLAX] 8.5 g PO DAILY 05/22/20 [History] risperiDONE [Risperdal] 0.25 mg PO BID 05/22/20 [History] Apixaban [Eliquis] 5 mg PO ASDIRECTED #74 tablet 07/23/20 [Rx] Past Medical History Other HEENT History: dry eye syndrome, age related cataract, preglaucoma Cardiovascular History: Reports: Afib, CAD, High Cholesterol, Hypertension Other Cardiovascular History: Angina Pectoris, unspecified bradycardia Other Musculoskeletal History: has Alzheimer's Neurological History: Reports: Alzheimers Disease, Seizure, TIA Other Neuro History: Vascular dementia wihtout behavioral disturbance, Psychotic disorder with delusions due to known physiological condition. 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 Endocrine/Metabolic History: Reports: Hypothyroidism Oncologic (Cancer) History: Reports: Other (See Below) Other Oncologic History: malignant neoplasm of the skin. Dermatologic History: Reports: Other (See Below) Other Dermatologic History: malignant neoplasm of the skin. - Past Surgical History Female Surgical History: Reports: Hysterectomy Social & Family History - Tobacco Use Tobacco Use Status *Q: Former Tobacco User (Patient states she stopped smoking many years ago.) - Caffeine Use Caffeine Use: Reports: Coffee Caffeine Use Comment: unable to get this information as of this time. - Alcohol Use Alcohol Use History: No - Living Situation & Occupation Living situation: Reports: Extended Care Facility (Patient is a resident of [facility].) Review of Systems - Review of Systems Review Of Systems: See Below Constitutional: Reports: No Symptoms Eyes: Reports: No Symptoms Ears: Reports: No Symptoms Nose: Reports: No Symptoms Mouth/Throat: Reports: No Symptoms Respiratory: Reports: No Symptoms Cardiovascular: Reports: No Symptoms GI/Abdominal: Reports: No Symptoms Genitourinary: Reports: No Symptoms Musculoskeletal: Reports: Leg Pain (Some pain/discomfort in left lower extremity.), Other (Swelling of the entire left lower extremity.) Skin: Reports: No Symptoms Neurological: Reports: No Symptoms Psychiatric: Reports: No Symptoms ED EXAM, GENERAL - Physical Exam Exam: See Below Exam Limited By: No Limitations General Appearance: Alert, WD/WN, No Apparent Distress Eye Exam: Bilateral Eye: EOMI, Normal Inspection Ears: Normal External Exam, Hearing Grossly Normal Ear Exam: Bilateral Ear: Auricle Normal Nose: Normal Inspection, Normal Mucosa, No Blood Throat/Mouth: Normal Inspection, Normal Lips, Normal Oropharynx, Normal Voice, No Airway Compromise Head: Atraumatic, Normocephalic Neck: Normal Inspection, Supple, Non-Tender, Full Range of Motion Respiratory/Chest: No Respiratory Distress, Lungs Clear, Normal Breath Sounds, No Accessory Muscle Use, Chest Non-Tender Cardiovascular: Normal Peripheral Pulses, Regular Rate, Rhythm, No JVD, No Murmur Peripheral Pulses: 2+: Radial (L), Radial (R), Dorsalis Pedis (L), Dorsalis Pedis (R) GI/Abdominal: Normal Bowel Sounds, Soft, Non-Tender, No Mass Back Exam: Normal Inspection, Full Range of Motion Extremities: Normal Range of Motion, Pedal Edema, Other (Edema of the entire left lower extremity.). No: Increased Warmth Neurological: Alert, CN II-XII Intact, No Motor/Sensory Deficits, Disoriented Psychiatric: Flat Affect Skin Exam: Warm, Dry, Intact, Normal Color, No Rash Course - Vital Signs Last Recorded V/S: Last Vital Signs Temp 36.1 C 07/23/20 07:21 Pulse 65 07/23/20 07:21 Resp 18 07/23/20 07:21 BP 149/67 H 07/23/20 07:21 Pulse Ox 95 07/23/20 07:21 - Orders/Labs/Meds Orders: Active Orders 24 hr Category Date Time Status VL Duplex Lwr Ext Veins Ltd Lt [US] Stat Exams 07/23/20 08:29 Ordered Meds: Medications Discontinued Medications Generic Name Dose Route Start Last Admin Trade Name Maria Eugenia PRN Reason Stop Dose Admin Apixaban 10 mg 07/23/20 09:21 Eliquis PO 07/23/20 09:22 ONETIME ONE - Radiology Interpretation Free Text/Narrative:: Doppler venous ultrasound of the left lower extremity showed DVT in the femoral and saphenous all the way down to the knee and the lower leg was not really able to be seen well secondary to the swelling. - Re-Assessments/Exams Free Text/Narrative Re-Assessment/Exam: 07/23/20 09:20: Patient with fairly extensive DVT in the left lower extremity. She has normal vital signs with normal O2 saturation and normal pulse rate and has no evidence of pulmonary emboli at this point. The patient will be placed on Eliquis 10 mg daily for 1 week and then 5 mg twice daily thereafter. I discussed the patient's case with Dr. Brennan who is inspector canned food reconditioning for Dr. Rosen (the patient's primary). Dr. Brennan will disseminate this information to Dr. Rosen and follow-up and continued therapy be [facility] . Departure - Departure Time of Disposition: :27 Disposition: DC/Tfer to SNF 03 Condition: Good Clinical Impression: Deep vein thrombosis, lower left extremity Qualifiers: Affected thrombotic vein of extremity: femoral Chronicity: acute Qualified Code(s): I82.412 - Acute embolism and thrombosis of left femoral vein - Discharge Information Prescriptions: Apixaban [Eliquis] 5 mg PO ASDIRECTED #74 tablet Instructions: Deep Vein Thrombosis, Bleeding Precautions When on Anticoagulant Therapy, Adult Referrals: PCP,None [Ordering Only Provider] - Forms: ED Department Discharge Additional Instructions: The patient has a blood clot in her left leg. She is being placed on Eliquis to treat this. The prescription that was sent to [facility] was for one month therapy. The patient will need further therapy and this will be through the [facility] , Dr. Rosen. Further cares and therapy through them. Sepsis Event Note (ED) - Focused Exam Vital Signs: Vital Signs Temp Pulse Resp BP Pulse Ox 07/23/20 07:21 36.1 C 65 18 149/67 H 95 - My Orders Last 24 Hours: My Active Orders 07/23/20 08:29 VL Duplex Lwr Ext Veins Ltd Lt [US] Stat - Assessment/Plan Last 24 Hours: My Active Orders 07/23/20 08:29 VL Duplex Lwr Ext Veins Ltd Lt [US] Stat
[2020-07-23] MEDS ORDERED: Apixaban 5 MG Tab PO ONE (09:21)
--- NOTE | 2020-07-24 11:50 | US ---
INDICATION: Swelling of entire left lower extremity. DUPLEX ULTRASOUND LEFT LOWER EXTREMITY VEINS: Utilizing 2D real-time duplex Doppler spectral analysis and color flow imaging, examination of the left lower extremity veins was obtained including the CFV, SFJ/proximal GVS, proximal DFV, proximal mid and distal FV, popliteal vein, posterior tibial vein (proximal PTV only), peroneal vein not seen. Calf veins were not fully visualized due to extreme edema. Throughout the venous structures visualized, there is echogenic material within the veins with incompressibility and lack of flow compatible with extensive deep venous thrombosis. Superficial venous thrombosis also noted at the greater saphenous vein. IMPRESSION: Extensive venous thrombosis of the left lower extremity. MTDD
== END 2020-07-23 10:16 ==
LOC: FB.ED 07:21
DX: I82.412 Acute embolism and thrombosis of left femoral vein (principal); I48.91 Unspecified atrial fibrillation; I25.10 Atherosclerotic heart disease of native coronary artery without angina pectoris; I10 Essential (primary) hypertension; E03.9 Hypothyroidism, unspecified; G30.9 Alzheimer's disease, unspecified; F02.80 Dementia in other diseases classified elsewhere, unspecified severity, without behavioral disturbance, psychotic disturbance, mood disturbance, and anxiety; Z86.73 Personal history of transient ischemic attack (TIA), and cerebral infarction without residual deficits; Z88.1 Allergy status to other antibiotic agents; Z88.5 Allergy status to narcotic agent; Z79.82 Long term (current) use of aspirin; Z79.899 Other long term (current) drug therapy; Z87.891 Personal history of nicotine dependence
CPT/HCPCS: 93971; 99283; A9270